=== PATIENT | male | born 1960 | race Two or more races ===

== ENCOUNTER 2024-06-22 11:28 | Emergency (ER) | payer SELFPAY ==
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
--- NOTE | 2024-06-22 12:00 | PC.NURSE ---
PT REFUSING TO BE SEEN BY PROVIDER, VITALS, AND TREATMENT.
== END 2024-06-22 12:59 | disposition home or self-care (01) ==
PROVIDERS: Emergency Provider Emergency Medicine
DX: Z02.89 Encounter for other administrative examinations (principal); Z04.1 Encounter for examination and observation following transport accident; Z53.29 Procedure and treatment not carried out because of patient's decision for other reasons